=== PATIENT | male | born 1995 | race Hispanic/Latino ===

== ENCOUNTER 2019-04-26 19:26 | Emergency (ER) | payer OTHER, SELFPAY ==
[2019-04-26] MEDS ORDERED: NA CHLORIDE 0.9% 1,000 ML ONE (19:53)
[2019-04-26 20:07] LABS: Absolute Lymphocytes (CBC) 2.4 K/uL (0.7-4.9); Basophils % 0.3 % (0-1.3); Hematocrit 39.2 % (39.6-49.0); Lymphocytes % 26.1 % (15.3-44.8); MPV 7.9 fL (7.6-11.3); RBC Red Blood Cell Count 4.36 M/uL (4.33-5.43)
[2019-04-26 20:13] LABS: Protime INR 1.02
[2019-04-26 20:26] LABS: ALT/SGPT 38 U/L (12-78); AST/SGOT 35 U/L (15-37); Alkaline Phosphatase 58 U/L (45-117); BUN Blood Urea Nitrogen 16 mg/dL (7-18); Bicarbonate 25 mmol/L (21-32); Bilirubin Direct < 0.1 mg/dL (0-0.2); Bilirubin Total 0.2 mg/dL (0.2-1.0); Creatine Phosphokinase 929 U/L (39-308); Glucose Level 113 mg/dL (74-106); NT PRO-BNP 36 pg/mL (<125); Protein, Total 7.3 g/dL (6.4-8.2); Sodium Level 139 mmol/L (136-145); Troponin (Emerg Dept Use Only) < 0.02 ng/mL (0.0-0.045)
[2019-04-26 20:28] LABS: Barbiturates NEGATIVE (NEGATIVE); Benzodiazepines NEGATIVE (NEGATIVE); Cocaine NEGATIVE (NEGATIVE); METHAMPHETAM NEGATIVE (NEGATIVE); Methadone NEGATIVE (NEGATIVE); Opiates NEGATIVE (NEGATIVE); Phencyclidine NEGATIVE (NEGATIVE); THC Cannibis NEGATIVE (NEGATIVE)
[2019-04-26 21:28] LABS: Urine Blood NEGATIVE (NEG); Urine Glucose NEGATIVE (NEG); Urine Protein NEGATIVE (NEG); Urine Specific Gravity 1.015 (1.005-1.030)
--- NOTE | 2019-04-26 21:57 | ER ---
Nurse's Notes [facility] Name: Eric Mccracken Age: 23 yrs Sex: Male : 1995 Arrival Date: 04/26/2019 Time: 19:29 Bed 6 Private MD: Diagnosis: Seizure Presentation: 04/26 19:29 Presenting complaint: EMS states: Called for patient who was unresponsive, breathing lp1 fast; On arrival, patient diaphoretic, confused, dilated pupils, tachycardic per EMS; Patient became A/O x3 en route to ED, unable to recall events. Transition of care: patient was not received from another setting of care. Onset of symptoms was April 26, 2019. Risk Assessment: Do you want to hurt yourself or someone else? Patient reports no desire to harm self or others. Initial Sepsis Screen: Does the patient meet any 2 criteria? No. Patient's initial sepsis screen is negative. Does the patient have a suspected source of infection? No. Patient's initial sepsis screen is negative. Care prior to arrival: Medication(s) given: Normal saline infusion, 400 ml IV initiated. 20 GA, in the right antecubital area, Glucose check: 108. 19:29 Method Of Arrival: EMS: [facility] lp1 19:29 Acuity: BRYAN 2 lp1 Triage Assessment: 19:39 General: Appears in no apparent distress. comfortable, Behavior is calm, cooperative, cc3 appropriate for age. Pain: Denies pain. EENT: No signs and/or symptoms were reported regarding the EENT system. Neuro: Level of Consciousness is awake, alert, obeys commands, Oriented to person, place, time, situation, Appropriate for age Broommaker are equal bilaterally Moves all extremities. Full function Speech is normal, Facial symmetry appears normal, Pupils are PERRLA, Intact Reports a syncopal episode. Cardiovascular: Denies chest pain, Heart tones S1 S2 present Capillary refill < 3 seconds in bilateral fingers Patient's skin is warm and dry. Rhythm is sinus rhythm. Respiratory: Airway is patent Respiratory effort is even, unlabored, Respiratory pattern is regular, symmetrical. GI: Abdomen is round non-distended. : No signs and/or symptoms were reported regarding the genitourinary system. Derm: Skin is intact, is healthy with good turgor, Skin is pink, warm \T\ dry. normal. Musculoskeletal: Circulation, motion, and sensation intact. Range of motion: intact in all extremities. Historical: - Allergies: 19:31 No Known Allergies; lp1 - Home Meds: 19:31 None [Active]; lp1 - PMHx: 19:31 None; lp1 - PSHx: 19:31 None; lp1 - Immunization history:: Adult Immunizations up to date. - Social history:: Smoking status: Patient/guardian denies using tobacco. - Ebola Screening: : No symptoms or risks identified at this time. Screenin:39 Abuse screen: Denies threats or abuse. Denies injuries from another. Nutritional cc3 screening: No deficits noted. Tuberculosis screening: No symptoms or risk factors identified. Fall Risk Ambulatory Aid- None/Bed Rest/Nurse Assist (0 pts). Gait- Normal/Bed Rest/Wheelchair (0 pts) Mental Status- Oriented to own ability (0 pts). Assessment: 19:39 General: see triage assessment. cc3 20:25 Reassessment: Patient appears in no apparent distress at this time. Patient and/or cc3 family updated on plan of care and expected duration. Pain level reassessed. Patient is alert, oriented x 3, equal unlabored respirations, skin warm/dry/pink. Patient denies pain at this time. 21:33 Reassessment: Patient appears in no apparent distress at this time. Patient and/or cc3 family updated on plan of care and expected duration. Pain level reassessed. Patient is alert, oriented x 3, equal unlabored respirations, skin warm/dry/pink. Patient denies pain at this time. 22:20 Reassessment: Patient appears in no apparent distress at this time. Patient and/or cc3 family updated on plan of care and expected duration. Pain level reassessed. Patient is alert, oriented x 3, equal unlabored respirations, skin warm/dry/pink. PA Page discharged the patient home, no prescription given. IV cannula removed and patient left ER vitally stable and ambulatory with his father. No valuables left in the patient's room. Patient denies pain at this time. Patient states feeling better. Patient states symptoms have improved. Vital Signs: 19:31 BP 136 / 81; Pulse 110; Resp 18; Temp 98.6(O); Pulse Ox 99% on R/A; Weight 80.29 kg; lp1 Height 5 ft. 8 in. (172.72 cm); Pain 0/10; 19:42 BP 126 / 72 Supine; Pulse 105; Resp 15 S; Pulse Ox 99% on R/A; cc3 19:43 BP 123 / 81 Sitting; Pulse 103; Resp 20 S; Pulse Ox 100% on R/A; cc3 19:44 BP 128 / 75 Standing; Pulse 96; Resp 18 S; Pulse Ox 100% on R/A; cc3 20:15 BP 121 / 74; Pulse 93; Resp 16 S; Pulse Ox 98% on R/A; cc3 21:32 BP 114 / 68; Pulse 80; Resp 16 S; Pulse Ox 97% on R/A; cc3 22:16 BP 118 / 67; Pulse 83; Resp 16 S; Pulse Ox 99% on R/A; Pain 0/10; cc3 19:31 Body Mass Index 26.91 (80.29 kg, 172.72 cm) lp1 ED Course: 19:29 Patient arrived in ED. lp1 19:31 Triage completed. lp1 19:31 Arm band placed on. lp1 19:33 Guillermo Dalal PA is PHCP. cp 19:34 Terry Edward MD is Attending Physician. cp 19:39 Lexy Luna is Primary Nurse. cc3 19:39 Patient has correct armband on for positive identification. Placed in gown. Bed in low cc3 position. Call light in reach. Side rails up X2. head kiln operator on. Pulse ox on. NIBP on. 19:39 Maintain EMS IV. Dressing intact. Good blood return noted. Site clean \T\ dry. Gauge \T\ cc 3 site: gauge 20 right ACV. 21:04 CT Head Brain wo Cont In Process Unspecified. EDMS 21:55 Ming Anthony MD is Referral Physician. cp 22:20 No provider procedures requiring assistance completed. IV discontinued, intact, cc3 bleeding controlled, No redness/swelling at site. Pressure dressing applied. Administered Medications: 20:00 Drug: NS 0.9% 1000 ml Route: IV; Rate: 1 bolus; Site: right antecubital; cc3 21:00 Follow up: Response: No adverse reaction; IV Status: Completed infusion; IV Intake: cc3 1000ml Point of Care Testing: Blood Glucose: 20:26 Blood Glucose: 113 mg/dL; cc3 20:26 serum blood glucose level result from lab cc3 Ranges: Intake: 21:00 IV: 1000ml; Total: 1000ml. cc3 Outcome: 21:56 Discharge ordered by . cp 22:20 Discharged to home ambulatory, with family. cc3 22:20 Condition: stable 22:20 Discharge instructions given to patient, family, Instructed on discharge instructions, follow up and referral plans. Demonstrated understanding of instructions, follow-up care. 22:27 Patient left the ED. cc3 Signatures: Dispatcher [employer] EDMS Edelmira Hughes RN RN lp1 Guillermo Dalal PA PA cp Cordel, Charlene cc3 Corrections: (The following items were deleted from the chart) :55 19:39 Neuro: Reports a syncopal episode cc3 cc3 :55 19:39 EENT: No signs and/or symptoms were reported regarding the EENT system. cc3 cc3
--- NOTE | 2019-04-26 21:57 | EDPHYS ---
Physician Documentation [facility] Name: Eric Mccracken Age: 23 yrs Sex: Male : 1995 Arrival Date: 04/26/2019 Time: 19:29 Bed 6 Private MD: ED Physician Terry Edward HPI: 04/26 19:40 This 23 yrs old Male presents to ER via EMS with complaints of Syncope. cp 19:40 The patient presents after having a single isolated seizure, that lasted 10 minute(s), cp the episode(s) was witnessed, by family, father. 19:40 Character of seizure(s): Loss of consciousness: the patient experienced loss of cp consciousness, for 10 minute(s), Motor activity: generalized, shaking all over, Incontinence: none. Seizure onset: today, about 1830. Context: the seizure(s) was witnessed, by family, father, occurred at home, occurred while the patient was sitting on couch and texting. Contributing factors: unknown. Seizure Hx: the patient has no previous seizure history. Associated injury: The patient did not suffer any apparent associated injury. EMS care: none. Current symptoms: unable to recall recent events. The patient has not experienced similar symptoms in the past. Father reports he observed patient sitting on couch and texting. Patient then fell from couch onto floor and began "shaking all over." Father reports patient was shaking for 5 minutes. He ran out the house to neighbor's home and EMS was called. Historical: - Allergies: 19:31 No Known Allergies; lp1 - Home Meds: 19:31 None [Active]; lp1 - PMHx: 19:31 None; lp1 - PSHx: 19:31 None; lp1 - Immunization history:: Adult Immunizations up to date. - Social history:: Smoking status: Patient/guardian denies using tobacco. - Ebola Screening: : No symptoms or risks identified at this time. ROS: 19:45 Constitutional: Negative for fever. cp 19:45 Cardiovascular: Negative for chest pain. cp 19:45 Respiratory: Negative for cough, shortness of breath. 19:45 Abdomen/GI: Negative for abdominal pain, vomiting, diarrhea, constipation. 19:45 Neuro: Positive for loss of consciousness, Negative for headache, weakness. 19:45 Neck: Negative for pain with movement, pain at rest, stiffness. cp 19:45 All other systems are negative. cp Exam: 19:35 ECG was reviewed by the Attending Physician. cp 19:50 Constitutional: The patient appears in no acute distress, alert, awake, cp non-diaphoretic, non-toxic, well developed, well nourished. 19:50 Head/Face: Normocephalic, atraumatic. cp 19:50 Eyes: Periorbital structures: appear normal, Pupils: equal, round, and reactive to light and accomodation, Extraocular movements: intact throughout, Conjunctiva: normal, no exudate, no injection, Lids and lashes: appear normal, bilaterally. 19:50 ENT: External ear(s): are unremarkable, Ear canal(s): are normal, clear, TM's: bulging, is not appreciated, bilaterally, dullness, bilaterally, erythema, is not appreciated, bilaterally, Nose: is normal, Mouth: Lips: moist, Oral mucosa: pink and intact, moist, Posterior pharynx: is normal, airway is patent, no erythema, no exudate. 19:50 Neck: ROM/movement: is normal, is supple, without pain, no range of motions limitations, no meningismus, no nuchal rigidity. 19:50 Chest/axilla: Inspection: normal, Palpation: is normal, no crepitus, no tenderness. 19:50 Cardiovascular: Rate: tachycardic, Rhythm: regular, Edema: is not appreciated, JVD: is not appreciated. 19:50 Respiratory: the patient does not display signs of respiratory distress, Respirations: normal, no use of accessory muscles, no retractions, no splinting, no tachypnea, labored breathing, is not present, Breath sounds: are clear throughout, no decreased breath sounds, no stridor, no wheezing. 19:50 Abdomen/GI: Inspection: abdomen appears normal, Palpation: abdomen is soft and non-tender, in all quadrants. 19:50 Skin: cellulitis, is not appreciated, no rash present. 19:50 Neuro: Orientation: to person, place \\T\\ time. Mentation: is normal, Cerebellar function: is grossly normal, Motor: moves all fours, strength is normal, Sensation: is normal. Vital Signs: 19:31 BP 136 / 81; Pulse 110; Resp 18; Temp 98.6(O); Pulse Ox 99% on R/A; Weight 80.29 kg; lp1 Height 5 ft. 8 in. (172.72 cm); Pain 0/10; 19:42 BP 126 / 72 Supine; Pulse 105; Resp 15 S; Pulse Ox 99% on R/A; cc3 19:43 BP 123 / 81 Sitting; Pulse 103; Resp 20 S; Pulse Ox 100% on R/A; cc3 19:44 BP 128 / 75 Standing; Pulse 96; Resp 18 S; Pulse Ox 100% on R/A; cc3 20:15 BP 121 / 74; Pulse 93; Resp 16 S; Pulse Ox 98% on R/A; cc3 21:32 BP 114 / 68; Pulse 80; Resp 16 S; Pulse Ox 97% on R/A; cc3 22:16 BP 118 / 67; Pulse 83; Resp 16 S; Pulse Ox 99% on R/A; Pain 0/10; cc3 19:31 Body Mass Index 26.91 (80.29 kg, 172.72 cm) lp1 MDM: 19:36 Patient medically screened. cp 21:55 Data reviewed: vital signs, nurses notes, lab test result(s), EKG, radiologic studies, cp CT scan. 21:55 Test interpretation: by ED physician or midlevel provider: ECG. 04/26 19:41 Order name: Basic Metabolic Panel; Complete Time: 20:33 cp 04/26 20:33 Interpretation: Normal except: GLUC 113; GFR 78. cp 04/26 19:41 Order name: CBC with Diff; Complete Time: 20:33 cp 04/26 20:34 Interpretation: Normal except: HGB 13.3; HCT 39.2. cp 04/26 19:41 Order name: LFT's; Complete Time: 20:33 cp 04/26 19:41 Order name: Magnesium; Complete Time: 20:33 cp 04/26 19:41 Order name: NT PRO-BNP; Complete Time: 20:33 cp 04/26 19:41 Order name: PT-INR; Complete Time: 20:33 cp 04/26 19:41 Order name: Troponin (emerg Dept Use Only); Complete Time: 20:33 cp 04/26 19:41 Order name: EKG; Complete Time: 19:43 cp 04/26 19:41 Order name: CPK; Complete Time: 20:33 cp 04/26 20:34 Interpretation: Abnormal: CPK 929. 04/26 19:41 Order name: UDS; Complete Time: 20:33 04/26 21:35 Interpretation: Reviewed. 04/26 19:41 Order name: ETOH Level; Complete Time: 20:33 cp 04/26 20:14 Order name: Urine Dipstick--Ancillary (enter results); Complete Time: 21:34 mw2 04/26 21:35 Interpretation: Reviewed. 04/26 20:33 Order name: CT Head Brain wo Cont 04/26 19:35 Order name: Orthostatics; Complete Time: 19:46 04/26 19:41 Order name: Cardiac monitoring; Complete Time: 19:46 04/26 19:41 Order name: EKG - Nurse/Tech; Complete Time: 19:46 04/26 19:41 Order name: IV Saline Lock; Complete Time: 19:46 04/26 19:41 Order name: Labs collected and sent; Complete Time: 20:12 04/26 19:41 Order name: O2 Per Protocol; Complete Time: 19:46 04/26 19:41 Order name: O2 Sat Monitoring; Complete Time: 19:46 cp EC:35 Rate is 102 beats/min. Rhythm is regular. VT interval is normal. QRS interval is cp normal. QT interval is normal. Interpreted by me. Reviewed by me. Administered Medications: 20:00 Drug: NS 0.9% 1000 ml Route: IV; Rate: 1 bolus; Site: right antecubital; cc3 21:00 Follow up: Response: No adverse reaction; IV Status: Completed infusion; IV Intake: cc3 1000ml Point of Care Testing: Blood Glucose: 20:26 Blood Glucose: 113 mg/dL; cc3 20:26 serum blood glucose level result from lab cc3 Ranges: Critical Glucose Levels:Adult <50 mg/dl or >400 mg/dl <40 mg/dl or >180 mg/dl Disposition: 22:20 Chart complete. Disposition: 04/26/19 21:56 Discharged to Home. Impression: Seizure. - Condition is Stable. - Discharge Instructions: Seizure, Adult, Form - Excuse from Work, School, or Physical Activity. - Medication Reconciliation Form, Thank You Letter, Antibiotic Education, Prescription Opioid Use form. - Work release form (04/28/19 14:25). dm5 - Follow up: Ming Anthony MD; When: 2 - 3 days; Reason: Recheck today's complaints. - Problem is new. - Symptoms have improved. 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 g s Signatures: Dispatcher [employer] EDMS Edelmira Hughes RN RN lp1 Guillermo Dalal PA PA cp Terry Edward MD MD gs Cordel, Charlene cc3 Ann Weiss RN dm5 Corrections: (The following items were deleted from the chart) 04/26 21:40 19:45 All other systems are negative, cp cp 22:27 21:56 04/26/2019 21:56 Discharged to Home. Impression: Seizure. Condition is Stable. cc3 Forms are Medication Reconciliation Form, Thank You Letter, Antibiotic Education, Prescription Opioid Use. Follow up: Ming Anthony; When: 2 - 3 days; Reason: Recheck today's complaints. Problem is new. Symptoms have improved. cp
[2019-04-26 22:40] VITALS: TEMP 98.6
[2019-04-26 22:48] VITALS: BP 114/68; O2SAT 97
--- NOTE | 2019-04-27 09:04 | EKG ---
Test Date: 2019-04-26 Test Time: 19:30:46 [employer]: MARCUS MEASUREMENT RESULTS: Intervals: Rate: 102 OK: 120 QRSD: 88 QT: 362 QTc: 471 Pindall: P: 62 OK: 120 QRS: 79 T: 54 INTERPRETIVE STATEMENTS: Sinus tachycardia Otherwise normal ECG No previous ECG available for comparison Electronically Signed On 04-27-19 09:03:16 CDT by Michael Christensen
--- NOTE | 2019-04-29 16:57 | RAD REPORT ---
EXAM DESCRIPTION: CT - Head Brain Wo Cont - 04/26/2019 9:28 pm CLINICAL HISTORY: 23 years Male, SEIZURE TECHNIQUE: 5 mm axial images were obtained along with 3 mm reformatted coronal and sagittal images. This exam was performed according to our departmental dose-optimization program, which includes autom ated exposure control, adjustment of the mA and/or kV according to patient size and/or use of iterati ve reconstruction technique. COMPARISON: None. FINDINGS: No acute abnormal extracerebral fluid collections are demonstrated. The cortical sulci, ventricles, and cisterns are within normal limits. There are no areas of altered attenuation identified to suggest acute hemorrhage, infarction, or mass lesion. The visualized portions of the paranasal sinuses and mastoid air cells are clear. IMPRESSION: 1. Normal study. Electronically signed by: Harpal Wilson MD 04/26/2019 9:09 PM CDT Due to temporary technical issues with the PACS/Fluency reporting system, reports are being signed by the in house radiologist as a courtesy to ensure prompt reporting. The interpreting radiologist is f ully responsible for the content of the report.
== END 2019-04-26 22:27 | disposition home or self-care (01) ==
LOC: ER 19:26
DX: R56.9 Unspecified convulsions (principal)
CPT/HCPCS: 36415; 70450; 80048; 80076; 80307; 80320; 81003; 82550; 83735; 83880; 84484; 85025; 85610; 93005; 96360; 99284; J7030